=== PATIENT | male | born 1990 | race African-American/Black ===

== ENCOUNTER 2018-08-11 14:57 | Emergency (ER) | payer SELFPAY ==
[2018-08-11] MEDS ORDERED: NORMAL SALINE 1000 ML 1,000 ML IV ONE ×2 (15:21→16:33)
--- NOTE | 2018-08-11 15:21 | ER Document Report ---
ED General - General Mode of Arrival: Ambulatory Information source: Patient <JOSÉ MANUEL CATESCHARLEE - Last Filed: 08/11/18 15:44> <JEOVANY VELEZ - Last Filed: 08/11/18 20:45> - General Stated Complaint: POSSIBLE DEHYDRATION Time Seen by Provider: 08/11/18 15:09 Notes: Patient is a 28 year old male presenting to the emergency department complaining of possible dehydration. 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 Patient states that he has had decreased fluid and food intake today and has also had decreased urine output as well. Patient also complains of severe abdominal cramps and midsternal chest pain. Patient received 300 mg of LR via EMS. Patient states that he was diagnosed with PE approximately 3 months ago but has been noncompliant with his medication of Eliquis due to not being able to afford medication. Patient states that he is on 5 mg of Eliquis 2 times a day for the next 3 months. (LEATHA CATES) - Related Data Allergies/Adverse Reactions: No Known Allergies Allergy (Unverified 08/11/18 16:00) Past Medical History - General Information source: Patient - Social History Smoking Status: Current Every Day Smoker Cigarette use (# per day): Yes - 1/2 PPD Chew tobacco use (# tins/day): No Family History: Reviewed & Not Pertinent - Past Medical History Cardiac Medical History: Reports: Hx Pulmonary Embolism <LEATHA CATES - Last Filed: 08/11/18 15:44> Review of Systems - Review of Systems Constitutional: See HPI, Weakness EENT: No symptoms reported Cardiovascular: See HPI, Chest pain Respiratory: No symptoms reported Gastrointestinal: See HPI, Abdominal pain Genitourinary: No symptoms reported Male Genitourinary: No symptoms reported Musculoskeletal: No symptoms reported Skin: No symptoms reported Hematologic/Lymphatic: No symptoms reported Neurological/Psychological: No symptoms reported -: Yes All other systems reviewed and negative <LEATHA CATES - Last Filed: 08/11/18 15:44> Physical Exam - General General appearance: Appears well, Alert In distress: None - HEENT Head: Normocephalic, Atraumatic Eyes: Normal Conjunctiva: Normal Extraocular movements intact: Yes Pupils: PERRL Mucous membranes: Normal Neck: Normal - Respiratory Respiratory status: No respiratory distress Chest status: Nontender Breath sounds: Normal Chest palpation: Normal - Cardiovascular Rhythm: Regular Heart sounds: Normal auscultation Murmur: No Friction rub: No Gallop: None auscultated - Abdominal Inspection: Normal Distension: No distension Bowel sounds: Normal Tenderness: Nontender Organomegaly: No organomegaly - Back Back: Normal - Extremities General upper extremity: Normal ROM General lower extremity: Normal ROM - Neurological Neuro grossly intact: Yes Cognition: Normal Orientation: AAOx4 [place] Coma Scale Eye Opening: Spontaneous [place] Coma Scale Verbal: Oriented [place] Coma Scale Motor: Obeys Commands [place] Coma Scale Total: 15 Speech: Normal - Psychological Associated symptoms: Anxious - Skin Skin Temperature: Warm Skin Moisture: Dry Skin Color: Normal <LEATHA CATES - Last Filed: 08/11/18 15:44> - Vital signs Vitals: Temp Pulse Resp BP Pulse Ox 97.5 F 95 16 154/86 H 99 08/11/18 15:13 08/11/18 15:13 08/11/18 15:13 08/11/18 15:13 08/11/18 15:13 Course - Laboratory Result Diagrams: 08/11/18 15:35 08/11/18 15:35 <LEATHA CATES - Last Filed: 08/11/18 15:44> - Laboratory Result Diagrams: 08/11/18 15:35 08/11/18 15:35 - EKG Interpretation by Me EKG shows normal: Sinus rhythm, [place], Intervals. abnormal: QRS Complexes - ST elevation, probably early repolarization pattern, ST-T Waves - Inferior T wave inversion Rate: Normal - 80 Rhythm: NSR <JEOVANY VELEZ - Last Filed: 08/11/18 20:45> - Re-evaluation Re-evalutation: 08/11/18 19:42 At this time the patient feels much better. He has occasional nausea. He is sitting up smiling. 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 Patient is counseled on the need to continue to drink lots of water and other fluids today tonight and tomorrow. He will also be off work tomorrow to rest and avoid further muscle injury. (JEOVANY VELEZ) - Vital Signs Vital signs: Temp Pulse Resp BP Pulse Ox 98.6 F 95 18 138/62 H 100 08/11/18 20:00 08/11/18 15:13 08/11/18 20:00 08/11/18 20:00 08/11/18 20:00 - Laboratory Laboratory results interpreted by me: 08/11/18 08/11/18 08/11/18 15:35 15:35 16:50 WBC 12.8 H MCV 78 L Seg Neutrophils % 78.8 H Lymphocytes % 12.5 L Absolute Neutrophils 10.1 H Sodium 132.7 L Chloride 97 L Carbon Dioxide 20 L Glucose 114 H AST 87 H Creatine Kinase 4417 H Urine Protein 100 H Urine Ketones 80 H Discharge <LEATHA CATES - Last Filed: 08/11/18 15:44> <JEOVANY VELEZ - Last Filed: 08/11/18 20:45> - Discharge Clinical Impression: Dehydration Heat cramp Qualifiers: Encounter type: initial encounter Qualified Code(s): T67.2XXA - Heat cramp, initial encounter Rhabdomyolysis Qualifiers: Rhabdomyolysis type: non-traumatic Qualified Code(s): M62.82 - Rhabdomyolysis Condition: Stable Disposition: HOME, SELF-CARE Additional Instructions: Heat Exhaustion You have had an episode of heat exhaustion. The body overheats when sweating fails to keep the temperature down due to high humidity, exercise, or dehydration. Typical symptoms may include muscle cramps, dizziness, nausea, and even chilling. You should rest and drink plenty of fluids. Do not resume any activities until you feel fully back to normal. To prevent a recurrence, avoid working in the heat. Always drink plenty of fluids when the weather is hot, particularly if you will be exercising. Use extra caution when the humidity is high. If you feel symptoms of heat illness, douse yourself with cold water and rest in the shade. Call the doctor if you develop confusion, repeated vomiting, severe headache, severe muscle spasms, fever, chest pain or shortness of breath. You suffered significant breakdown of your muscles today due to the heat and dehydration. It is very important that you drink lots of fluids to include water and electrolyte solutions over the next few days. You will be off work tomorrow for complete rest and hydration. Take the nausea medicine you were given for this evening if needed. You may return to work on Saturday, but it is imperative that you drink lots of fluids before you start work and during the day while you are at work. You were given a prescription for the Eliquis you are supposed to be taking. It would be best if you find a way to get your prescription filled and take the medicine. You should also consider stopping smoking completely as this does increase the risk for forming new blood clots. You will need to see a primary care provider to renew the Eliquis prescription sometime in the next 2 weeks. RETURN TO THE EMERGENCY ROOM IF ANY NEW OR WORSENING SYMPTOMS. Prescriptions: Apixaban [Eliquis 5 mg Tablet] 5 mg PO BID #30 tablet Scribe Attestation: 08/11/18 15:50 I personally performed the services described in the documentation, reviewed and edited the documentation which was dictated to the scribe in my presence, and it accurately records my words and actions. (JEOVANY VELEZ)
[2018-08-11] MEDS ORDERED: ONDANSETRON HCL INJ/PF 4 MG/2 ML SDV IV ONE (15:42)
[2018-08-11 15:52] LABS: ABSOLUTE BASOPHILS # (AUTO) 0.1 10^3/uL (0.0-0.2); ABSOLUTE LYMPHOCYTES (AUTO) 1.6 10^3/uL (0.5-4.7); ABSOLUTE NEUT (AUTO) 10.1 10^3/uL (1.7-8.2); BASOPHILS % (AUTO) 0.8 % (0-2); EOSINOPHILS % (AUTO) 0.1 % (0-6); HEMATOCRIT 43.3 % (37.9-51.0); HEMOGLOBIN 15.2 g/dL (13.5-17.0); LYMPHOCYTES % (AUTO) 12.5 % (13-45); MEAN CORPUSCULAR HEMOGLOBIN 27.6 pg (27.0-33.4); MEAN CORPUSCULAR HGB CONC 35.1 g/dL (32.0-36.0); MEAN CORPUSCULAR VOLUME 78 fl (80-97); MONOCYTES % (AUTO) 7.8 % (3-13); PLATELET COUNT 175 10^3/uL (150-450); RED BLOOD COUNT 5.52 10^6/uL (4.35-5.55); RED CELL DISTRIBUTION WIDTH 13.4 % (11.5-14.0); SEGMENTED NEUTROPHILS % (AUTO) 78.8 % (42-78); TOTAL CELLS COUNTED % (AUTO) 100 %; WHITE BLOOD COUNT 12.8 10^3/uL (4.0-10.5)
[2018-08-11 16:19] LABS: ALANINE AMINOTRANSFERASE 55 U/L (21-72); ALBUMIN 4.6 g/dL (3.5-5.0); ALKALINE PHOSPHATASE 83 U/L (38-126); ANION GAP 16 (5-19); ASPARTATE AMINO TRANSFERASE 87 U/L (17-59); BILIRUBIN,DIRECT 0.3 mg/dL (0.0-0.4); BILIRUBIN,TOTAL 1.1 mg/dL (0.2-1.3); BLOOD UREA NITROGEN 16 mg/dL (7-20); CARBON DIOXIDE 20 mmol/L (22-30); CHLORIDE 97 mmol/L (98-107); GLUCOSE 114 mg/dL (75-110); POTASSIUM 4.3 mmol/L (3.6-5.0); SODIUM 132.7 mmol/L (137-145)
[2018-08-11 16:43] LABS: CREATINE KINASE 4417 U/L (55-170)
[2018-08-11] MEDS ORDERED: KETOROLAC TROMETHAMINE INJ/PF 30 MG/1 ML SDV IV ONE (16:45)
[2018-08-11] MEDS ORDERED: METOCLOPRAMIDE HCL INJ/PF 10 MG/2 ML SDV IV ONE (16:45)
[2018-08-11 16:49] LABS: CREATINE KINASE MB 4.24 ng/mL (<4.55); TROPONIN I < 0.012 ng/mL
[2018-08-11 16:58] LABS: LIPASE 54.5 U/L (23-300)
[2018-08-11 17:22] LABS: APPEARANCE,URINE CLEAR; BILIRUBIN,URINE NEGATIVE (NEGATIVE); COLOR,URINE YELLOW; GLUCOSE, URINE NEGATIVE (NEGATIVE); KETONES,URINE 80 mg/dL (NEGATIVE); LEUKOCYTE ESTERASE,URINE NEGATIVE (NEGATIVE); NITRITE,URINE NEGATIVE (NEGATIVE); PROTEIN,URINE 100 mg/dL (NEGATIVE); URINE SPECIFIC GRAVITY 1.025; UROBILINOGEN,URINE NEGATIVE mg/dL (<2.0)
[2018-08-11 17:37] LABS: URINE AMPHETAMINES SCREEN NEGATIVE; URINE BARBITURATES SCREEN NEGATIVE; URINE BENZODIAZEPINES SCREEN NEGATIVE; URINE COCAINE SCREEN NEGATIVE; URINE MARIJUANA (THC) SCREEN UNCONFIRMED POSITIVE; URINE METHADONE SCREEN NEGATIVE; URINE PHENCYCLIDINE SCREEN NEGATIVE
[2018-08-11] MEDS ORDERED: DEXTROSE 5%-LACTATED RINGERS 1,000 ML IV ONE (18:04)
[2018-08-11] MEDS ORDERED: ONDANSETRON ODT 4 MG TAB (6 TAB/ER DISP) PO PRN (19:46)
[2018-08-11 20:35] VITALS: BP 138/62
--- NOTE | 2018-08-12 13:02 | EKG REPORT ---
SEVERITY:- ABNORMAL ECG - SINUS RHYTHM ABNORMAL T, CONSIDER ISCHEMIA, INFERIOR LEADS ST ELEV, PROBABLE NORMAL EARLY REPOL PATTERN : Confirmed by: Adrian Ovalle MD 12-Aug-2018 13:02:22
== END 2018-08-11 20:34 | disposition home or self-care (01) ==
LOC: ER 14:57
DX: E86.0 Dehydration (principal); T67.2XXA Heat cramp, initial encounter; M62.82 Rhabdomyolysis; X58.XXXA Exposure to other specified factors, initial encounter; Y93.H3 Activity, building and construction; Y99.0 Civilian activity done for income or pay
CPT/HCPCS: 93005; 99284; 96361; 96374; 96375; 36415; 82553; 82550; 83690; 83735; 85025; 80053; 81001; 84484; 80307; 85379; 93010; J1885; J2765; J2405; J7030

== ENCOUNTER 2018-08-13 14:13 | Emergency (ER) | payer SELFPAY ==
[2018-08-13] MEDS ORDERED: ACETAMINOPHEN 325 MG TABLET PO ONE (14:52)
--- NOTE | 2018-08-13 14:53 | ER Document Report ---
ED Medical Screen (RME) - General Chief Complaint: Abdominal Pain Stated Complaint: ABDOMINAL PAIN Time Seen by Provider: 08/13/18 14:49 Notes: 28 years old male from [facility], presents today with abdominal pain chest pain. He was seen here a few days ago. Denies any fever chills but nausea has no vomiting. Denies any diarrhea or constipation. He seems to be in acute discomfort TRAVEL OUTSIDE OF THE [place] IN LAST 30 DAYS: No - Related Data Allergies/Adverse Reactions: No Known Allergies Allergy (Verified 08/13/18 14:14) Past Medical History - Past Medical History Cardiac Medical History: Reports: Hx Pulmonary Embolism Pulmonary Medical History: Reports: Hx Bronchitis Renal/ Medical History: Denies: Hx Peritoneal Dialysis Physical Exam - Vital signs Vitals: Temp Pulse Resp BP Pulse Ox 99.4 F 88 20 154/89 H 100 08/13/18 14:26 08/13/18 14:26 08/13/18 14:26 08/13/18 14:26 08/13/18 14:26 Course - Vital Signs Vital signs: Temp Pulse Resp BP Pulse Ox 99.4 F 88 20 154/89 H 100 08/13/18 14:26 08/13/18 14:26 08/13/18 14:26 08/13/18 14:26 08/13/18 14:26 - Laboratory Result Diagrams: 08/13/18 15:13 08/13/18 16:20 Laboratory results interpreted by me: 08/13/18 08/13/18 08/13/18 15:13 15:13 16:20 WBC 20.2 H RBC 5.76 H Seg Neuts % (Manual) 83 H Lymphocytes % (Manual) 7 L Abs Neuts (Manual) 16.8 H Abs Monocytes (Manual) 2.0 H Sodium 136.8 L AST 74 H Urine Ketones 20 H Urine Urobilinogen 2.0 H Procedures - Central Line Right Femoral Time completed: 19:10 Consent obtained: Yes Central line pre-insertion: Sterile PPE donned, Chloraprep applied Central line lumen type: Triple Anesthetic type: 1% Lidocaine mL's of anesthesia: 5 Ultrasound guided: No CM at insertion site: 18 Line secured with sutures: Yes Central line post-insertion: Blood return from lumens, Biopatch applied, Sutured , Sterile dressing applied Number of attempts: 1 Complications: No
[2018-08-13 15:46] LABS: HEMATOCRIT 46.2 % (37.9-51.0); HEMOGLOBIN 15.9 g/dL (13.5-17.0); MEAN CORPUSCULAR HEMOGLOBIN 27.6 pg (27.0-33.4); MEAN CORPUSCULAR HGB CONC 34.4 g/dL (32.0-36.0); MEAN CORPUSCULAR VOLUME 80 fl (80-97); PLATELET COUNT 205 10^3/uL (150-450); RED BLOOD COUNT 5.76 10^6/uL (4.35-5.55); RED CELL DISTRIBUTION WIDTH 13.7 % (11.5-14.0); WHITE BLOOD COUNT 20.2 10^3/uL (4.0-10.5)
[2018-08-13 15:48] LABS: APPEARANCE,URINE CLEAR; BILIRUBIN,URINE NEGATIVE (NEGATIVE); COLOR,URINE YELLOW; GLUCOSE, URINE NEGATIVE (NEGATIVE); KETONES,URINE 20 mg/dL (NEGATIVE); LEUKOCYTE ESTERASE,URINE NEGATIVE (NEGATIVE); NITRITE,URINE NEGATIVE (NEGATIVE); PROTEIN,URINE NEGATIVE (NEGATIVE); URINE SPECIFIC GRAVITY 1.017
--- NOTE | 2018-08-13 15:52 | RADIOLOGY REPORT (SQ) ---
EXAM DESCRIPTION: ACUTE ABDOMEN SERIES COMPLETED DATE/TIME: 08/13/2018 3:37 pm REASON FOR STUDY: Abdominal pain COMPARISON: None. NUMBER OF VIEWS: Three views. TECHNIQUE: Frontal chest, supine abdomen and upright/decubitus abdomen radiographic images acquired. LIMITATIONS: None. FINDINGS: CHEST: Lungs clear of infiltrates. FREE AIR: None. No abnormal gas collections. BOWEL GAS PATTERN: Nonobstructive pattern. No dilated loops or air fluid levels. CALCIFICATIONS: No suspicious calcifications. HARDWARE: None in the abdomen. SOFT TISSUES: No gross mass or suggestion of organomegaly. BONES: No acute fracture. No worrisome bone lesions. OTHER: No other significant finding. IMPRESSION: NO RADIOGRAPHIC EVIDENCE FOR ACUTE ABDOMINAL DISEASE. TECHNICAL DOCUMENTATION: JOB ID: [id number] [employer]- All Rights Reserved Reading location - IP/workstation name: [facility], [facility]-[id number]
[2018-08-13 16:06] LABS: ABSOLUTE LYMPHOCYTES# (MANUAL) 1.4 10^3/uL (0.5-4.7); ABSOLUTE NEUTROPHILS# (MANUAL) 16.8 10^3/uL (1.7-8.2); BASOPHILS % (MANUAL) 0 % (0-2); EOSINOPHILS % (MANUAL) 0 % (0-6); LYMPHOCYTES % (MANUAL) 7 % (13-45); MONOCYTES % (MANUAL) 10 % (3-13); PLATELET COMMENT ADEQUATE; SEGMENTED NEUTROPHILS % (MAN) 83 % (42-78); TOTAL CELLS COUNTED 100; TOXIC GRANULATION SLIGHT
[2018-08-13 16:47] LABS: URINE AMPHETAMINES SCREEN NEGATIVE; URINE BARBITURATES SCREEN NEGATIVE; URINE BENZODIAZEPINES SCREEN NEGATIVE; URINE COCAINE SCREEN NEGATIVE; URINE MARIJUANA (THC) SCREEN UNCONFIRMED POSITIVE; URINE METHADONE SCREEN NEGATIVE; URINE PHENCYCLIDINE SCREEN NEGATIVE
[2018-08-13] MEDS ORDERED: ONDANSETRON HCL INJ/PF 4 MG/2 ML SDV IV ONE (16:48)
[2018-08-13] MEDS ORDERED: RINGERS SOLUTION,LACTATED 1,000 ML IV ONE (16:48)
[2018-08-13 16:49] LABS: ALANINE AMINOTRANSFERASE 62 U/L (21-72); ALBUMIN 4.5 g/dL (3.5-5.0); ALKALINE PHOSPHATASE 83 U/L (38-126); ANION GAP 12 (5-19); ASPARTATE AMINO TRANSFERASE 74 U/L (17-59); BILIRUBIN,DIRECT 0.3 mg/dL (0.0-0.4); BILIRUBIN,TOTAL 1.3 mg/dL (0.2-1.3); BLOOD UREA NITROGEN 9 mg/dL (7-20); CALCIUM 10.2 mg/dL (8.4-10.2); CARBON DIOXIDE 22 mmol/L (22-30); CHLORIDE 103 mmol/L (98-107); GLUCOSE 108 mg/dL (75-110); POTASSIUM 4.2 mmol/L (3.6-5.0); SODIUM 136.8 mmol/L (137-145); TOTAL PROTEIN 8.2 g/dL (6.3-8.2)
--- NOTE | 2018-08-13 17:05 | ER Document Report ---
ED GI/ - General Chief Complaint: Abdominal Pain Stated Complaint: ABDOMINAL PAIN Time Seen by Provider: 08/13/18 14:49 Mode of Arrival: Ambulatory Information source: POA - Power of Stallion Manager Notes: 28-year-old male presents to ED for intractable nausea and vomiting abdominal cramping times 4 days. He was seen here 2 days ago for the same thing and is continued to vomit. His white count has gone from 12-20,000. He states he is used all the sofa and they gave him and it did no good. Patient is alert and oriented respirations regular and unlabored complaining that he needs something done for his abdominal pain nausea and vomiting. TRAVEL OUTSIDE OF THE [place] IN LAST 30 DAYS: No - HPI Patient complains to provider of: Abdominal pain, Vomiting Onset: Other - 4 days Timing/Duration: Persistent Quality of pain: Cramping Severity at maximum: Severe Severity in ED: Severe Pain Level: 5 Location: LUQ, LLQ, RUQ, RLQ, Left flank, Right flank Associated symptoms: Nausea, Vomiting Exacerbated by: Denies Relieved by: Denies Similar symptoms previously: Yes Recently seen / treated by doctor: Yes - Related Data Allergies/Adverse Reactions: No Known Allergies Allergy (Verified 08/13/18 14:14) Past Medical History - General Information source: Patient - Social History Smoking Status: Former Smoker Cigarette use (# per day): No Chew tobacco use (# tins/day): No Smoking Education Provided: No Frequency of alcohol use: States he quit Drug Abuse: Other - States he has not had a marijuana in 4 weeks but his marijuana is positive Family History: Reviewed & Not Pertinent Patient has suicidal ideation: No Patient has homicidal ideation: No - Past Medical History Cardiac Medical History: Reports: Hx Pulmonary Embolism Pulmonary Medical History: Reports: Hx Bronchitis EENT Medical History: Reports: None Neurological Medical History: Reports: None Endocrine Medical History: Reports: None Renal/ Medical History: Reports: None Malignancy Medical History: Reports None GI Medical History: Reports: None Musculoskeletal Medical History: Reports None Skin Medical History: Reports None Psychiatric Medical History: Reports: None Traumatic Medical History: Reports: None Infectious Medical History: Reports: None Surgical Hx: Negative Past Surgical History: Reports: None - Immunizations Immunizations up to date: Yes Hx Diphtheria, Pertussis, Tetanus Vaccination: Yes Review of Systems - Review of Systems Constitutional: Chills, Recent illness EENT: No symptoms reported Cardiovascular: No symptoms reported Respiratory: No symptoms reported Gastrointestinal: Abdominal pain, Nausea, Vomiting Genitourinary: No symptoms reported Male Genitourinary: No symptoms reported Musculoskeletal: No symptoms reported Skin: No symptoms reported Hematologic/Lymphatic: No symptoms reported Neurological/Psychological: No symptoms reported -: Yes All other systems reviewed and negative Physical Exam - Vital signs Vitals: Temp Pulse Resp BP Pulse Ox 99.4 F 88 20 154/89 H 100 08/13/18 14:26 08/13/18 14:26 08/13/18 14:26 08/13/18 14:26 08/13/18 14:26 Interpretation: Normal - General General appearance: Appears well, Alert - HEENT Head: Normocephalic, Atraumatic Eyes: Normal Pupils: PERRL - Respiratory Respiratory status: No respiratory distress Chest status: Nontender Breath sounds: Normal Chest palpation: Normal - Cardiovascular Rhythm: Regular Heart sounds: Normal auscultation Murmur: No - Abdominal Inspection: Normal Distension: No distension. No: Distended Bowel sounds: Hyperactive Tenderness: Tender Organomegaly: No organomegaly - Back Back: Normal, Nontender - Extremities General upper extremity: Normal inspection, Nontender, Normal color, Normal ROM , Normal temperature General lower extremity: Normal inspection, Nontender, Normal color, Normal ROM , Normal temperature, Normal weight bearing. No: Zahra's sign - Neurological Neuro grossly intact: Yes Cognition: Normal Orientation: AAOx4 Jennifer Coma Scale Eye Opening: Spontaneous Jennifer Coma Scale Verbal: Oriented [place] Coma Scale Motor: Obeys Commands [place] Coma Scale Total: 15 Speech: Normal Motor strength normal: LUE, RUE, LLE, RLE Sensory: Normal - Psychological Associated symptoms: Normal affect, Normal mood - Skin Skin Temperature: Warm Skin Moisture: Dry Skin Color: Normal Course - Re-evaluation Re-evalutation: 08/14/18 03:07 CT abdomen pelvis and chest was completed due to his abdominal pain nausea and vomiting and history of pulmonary edema. Patient was treated with IV fluids and Zofran IV as well as morphine for his abdominal pain nausea and vomiting. After numerous sticks patient was treated with a femoral central line by Dr. rsohan Olvera as we were unable to get lab samples or IV fluids started. After the femoral central line was started patient tolerated IV fluids and medications well and had relief from his symptoms. CT of chest showed that he had bilateral lower lobe infiltrates abdomen and pelvis was negative. Patient had no further nausea or vomiting while in the emergency room. Patient was treated with Rocephin in the emergency room and discharged home with Keflex. Patient was up ambulating tolerating fluids by discharge. Patient was instructed to return to the ED for any increase nausea or vomiting or other symptoms. Patient verbalized understanding and agreement with treatment plan. Patient was discharged home. X-ray showed that there was no pulmonary emboli at this time. - Vital Signs Vital signs: Temp Pulse Resp BP Pulse Ox 99.2 F 78 18 117/67 96 08/13/18 23:34 08/13/18 23:34 08/13/18 23:34 08/13/18 23:34 08/13/18 23:34 - Laboratory Result Diagrams: 08/13/18 15:13 08/13/18 16:20 Laboratory results interpreted by me: 08/13/18 08/13/18 08/13/18 15:13 15:13 16:20 WBC 20.2 H RBC 5.76 H Seg Neuts % (Manual) 83 H Lymphocytes % (Manual) 7 L Abs Neuts (Manual) 16.8 H Abs Monocytes (Manual) 2.0 H Sodium 136.8 L AST 74 H Urine Ketones 20 H Urine Urobilinogen 2.0 H - Diagnostic Test Radiology reviewed: Image reviewed, Reports reviewed Discharge - Discharge Clinical Impression: Pneumonia Qualifiers: Pneumonia type: due to unspecified organism Laterality: bilateral Lung location : lower lobe of lung Qualified Code(s): J18.1 - Lobar pneumonia, unspecified organism Nausea & vomiting Qualifiers: Vomiting type: unspecified Vomiting Intractability: non-intractable Qualified Code(s): R11.2 - Nausea with vomiting, unspecified Condition: Stable Disposition: HOME, SELF-CARE Instructions: Family Physicians / Practices Additional Instructions: PNEUMONIA: Your examination indicates that you have pneumonia. This is an infection of the lung tissue, usually caused by bacteria or a virus. Symptoms include cough, fever, shaking chills, chest pain, shortness of breath, and coughing up bloody sputum. Treatment for bacterial pneumonia includes rest, antibiotics for 10 to 14 days, increasing your clear liquid intake, a cool mist humidifier at your bedside, and fever medication. Often, a repeat chest X-ray is performed in a few weeks--even if you feel better--to ascertain whether the infection has completely resolved and no underlying lung problem is present. You should call the physician if you develop persistent vomiting, high fever that does not respond to fever medication, increasing shortness of breath , confusion, or lethargy. Also, failure to improve within two to three days is an indication for re-examination. ROCEPHIN: You have been given an injection of an antibiotic called Rocephin ( ceftriaxone). Sometimes the injection must be combined with antibiotic pills. For some infections, such as an uncomplicated ear infection, Rocephin provides all the antibiotic that's needed. The antibiotic will be in your body for about two days. For serious infections, we usually repeat doses of Rocephin daily. Side effects are very unusual following a shot. Women may develop vaginal yeast infections, and babies can get yeast (thrush) in the mouth following the use of antibiotics. Contact your physician if you have symptoms with this medication. Allergy to this antibiotic can result in hives, wheezing, faintness, or itching. If symptoms of allergy occur, call the doctor at once. ANTIBIOTIC THERAPY: You have been given an antibiotic prescription. It's important that you take all the medication, unless instructed otherwise by your physician. Failure to complete the entire course can result in relapse of your condition. Common side effects of antibiotics include nausea, intestinal cramping, or diarrhea. Women may develop vaginal yeast infections, and babies can get yeast (thrush) in the mouth following the use of antibiotics. Contact your physician if you develop significant side effects from this medication. Allergy to this antibiotic can result in hives, wheezing, faintness, or itching. If symptoms of allergy occur, stop the medication and call the doctor. LEVOFLOXACIN: You have been given an antibacterial agent, levofloxacin (Levaquin). This medicine is not related to the penicillins, sulfas, cephalosporins, or tetracyclines. It is often given to patients who are allergic to these drugs. It has been chosen for you either because other drugs are not appropriate, or because of the nature of your problem. Levaquin should not be taken with antacids, as these can decrease its effectiveness. It can be taken without regard to meals. LEVAQUIN SHOULD NOT BE TAKEN BY CHILDREN, NURSING WOMEN, OR WOMEN. Although Levaquin is usually well-tolerated, common side effects can include nausea and diarrhea. Contact your doctor if you experience any unusual symptoms while on this medication, such as joint pain or swelling, shortness of breath, wheezing, faintness, or hives. AZITHROMYCIN: Azithromycin (Zithromax) is a broad spectrum antibiotic in the same class as erythromycin. It can treat a variety of bacterial infections, but is most frequently used for respiratory infections. Azithromycin is extremely long-lasting. It accumulates in body tissues and continues to kill bacteria for many days. In order to improve absorption, Azithromycin should be taken at least one hour before or two hours after a meal. It does not have the same strong tendency to upset the stomach as erythromycin and is usually very well tolerated. Patients who have had a rash or other true allergic reactions to erythromycin should not take this medication. Call if you develop gastrointestinal distress, severe diarrhea, rash, hives, itching, or shortness of breath. DOXYCYCLINE: Doxycycline (Vibramycin, Doryx) is an antibiotic of the tetracycline family. This type of drug is useful for infections of the respiratory tract and genital tract, and is sometimes used for intestinal infections. Unlike most tetracyclines, doxycycline can be taken with food. It is longer acting, and (usually) less prone to side effects than regular tetracycline. Tetracycline antibiotics can stain immature teeth and SHOULD NOT BE TAKEN BY CHILDREN, NURSING MOTHERS, OR WOMEN. Tetracyclines can make you more prone to sunburn. Abdominal cramping, nausea, and diarrhea are occasional side effects. Women may experience vaginal yeast infections. Call the doctor at once if you develop hives, itching, shortness of breath , or lightheadedness. AMOXICILLIN: Amoxicillin is a member of the penicillin family. It covers the germs likely to cause ear, bronchial, and urinary infections better than plain penicillin. Amoxicillin can be taken without regard to meals. Nausea after taking the medication is rare, but can occur. Diarrhea can occur, particularly in small children. Vaginal yeast infections and oral thrush in infants are also common. Contact your physician if these problems occur. Allergy to penicillins is common. If you have had an allergic reaction to any drug of the penicillin family, you should never take any other penicillin. Notify your doctor at once if you develop hives, itching, swelling, faintness, or shortness of breath. Less serious side effects can include nausea or diarrhea. USE OF ACETAMINOPHEN (Tylenol): Acetaminophen may be taken for pain relief or fever control. It's much safer than aspirin, offering a wider range of "safe" dosages. It is safe during . Some brand names are Tylenol, Panadol, Datril, Anacin 3, Tempra, and Liquiprin. Acetaminophen can be repeated every four hours. The following are maximum recommended dosages: WEIGHT Dose Drops Elixir Chewable( 80mg) (LBS.) drprs=droppers tsp=teaspoon 6 40 mg 0.4 ml (1/2) 6-11 80 mg 0.8 ml (full) tsp 1 tab 12-16 120 mg 1 1/2 drprs 3/4 tsp 1 1/2 tabs 17-23 160 mg 2 drprs 1 tsp 2 tabs 24-30 240 mg 3 drprs 1 1/2 tsp 3 tabs 30-35 320 mg 2 tsp 4 tabs 36-41 360 mg 2 1/4 tsp 4 1/2 tabs 42-47 400 mg 2 1/2 tsp 5 tabs 48-53 480 mg 3 tsp 6 tabs 54-59 520 mg 3 1/4 tsp 6 1/2 tabs 60-64 560 mg 3 1/2 tsp 7 tabs 65-70 600 mg 3 3/4 tsp 7 1/2 tabs 71-76 640 mg 4 tsp 8 tabs 77-82 720 mg 4 1/2 tsp 9 tabs 83-88 800 mg 5 tsp 10 tabs >89 pounds or adults 650 mg to 900 mg Acetaminophen can be repeated every four hours. Maximum dose not to exceed 4000 mg a day. These maximum recommended dosages are slightly higher than the dosages written on the product container, but these dosages are very safe and below the toxic dosage for acetaminophen. FOLLOW-UP CARE: If you have been referred to a physician for follow-up care, call the physician s office for an appointment as you were instructed or within the next two days. If you experience worsening or a significant change in your symptoms, notify the physician immediately or return to the Emergency Department at any time for re-evaluation. Prescriptions: Ondansetron HCl [Zofran 8 mg Tablet] 8 mg PO Q8HP PRN #14 tablet PRN Reason: Cephalexin Monohydrate [Keflex 500 mg Capsule] 500 mg PO Q6H 10 Days capsule Forms: Elevated Blood Pressure, Return to Work
[2018-08-13] MEDS ORDERED: MORPHINE SULFATE 10 MG/ML INJ IM ONE (18:39)
--- NOTE | 2018-08-13 19:56 | RADIOLOGY REPORT (SQ) ---
EXAM DESCRIPTION: KUB/ABDOMEN (SINGLE VIEW) COMPLETED DATE/TIME: 08/13/2018 7:42 pm REASON FOR STUDY: check placement of line COMPARISON: None. NUMBER OF VIEWS: One view. TECHNIQUE: Supine radiographic image of the abdomen acquired. LIMITATIONS: None. FINDINGS: BOWEL GAS PATTERN: Normal bowel gas pattern. No dilated loops. CALCIFICATIONS: No suspicious calcifications. SOFT TISSUES: No gross mass or suggestion of organomegaly. HARDWARE: A catheter overlies the right femoral/iliac artery. BONES: No acute fracture. No worrisome bone lesions. OTHER: No other significant finding. IMPRESSION: Catheter as described. TECHNICAL DOCUMENTATION: JOB ID: [id number]- All Rights Reserved Reading location - IP/workstation name: [email or web address]
--- NOTE | 2018-08-13 21:32 | RADIOLOGY REPORT (SQ) ---
PROCEDURE: CT ABDOMEN PELVIS WITH IV CONTRAST, CT CHEST ANGIOGRAPHY WITHOUT THEN WITH IV CONTRAST COMPLETED DATE/TME: 08/13/2018 17:14 (accession [id number]), 08/13/2018 19:09 (accession [id number]) CLINICAL HISTORY: 28 years Male abdominal pain nv COMPARISON: None. TECHNIQUE: Contiguous axial images were obtained through the chest during the infusion of IV contrast. Reformatted images obtained. MIP reformatted images obtained. Additional postcontrast imaging was acquired through the abdomen and pelvis. Reformatted imaging obtained. This exam was performed according to our department optimization program which includes automated exposure control, adjustment of the mA and/or kv according to patient size and/or use of iterative reconstruction technique. FINDINGS: CHEST: There is no evidence of pulmonary embolus. There are patchy areas of alveolar infiltrate in the lower lobes bilaterally right greater than left. Findings may reflect infectious or inflammatory process. Occasional areas of peripheral density in the right upper lobe. Tiny noncalcified pulmonary nodules in the right upper and middle lobe measuring 3 mm. These can be followed in 12 months if there is concern for malignancy. No significant thoracic adenopathy. Abdomen pelvis: Liver spleen and pancreas are unremarkable. No acute abnormality in the kidneys. No adrenal masses. Gallbladder appears unremarkable. Unremarkable appendix. No bowel obstruction or free fluid. No significant adenopathy. No bowel obstruction. IMPRESSION: No evidence of acute process in the abdomen No evidence of pulmonary embolus Patchy areas of alveolar infiltrate in the chest predominantly in the lung bases right greater than left. Findings may reflect infectious or inflammatory process
--- NOTE | 2018-08-13 21:32 | RADIOLOGY REPORT (SQ) ---
PROCEDURE: CT ABDOMEN PELVIS WITH IV CONTRAST, CT CHEST ANGIOGRAPHY WITHOUT THEN WITH IV CONTRAST COMPLETED DATE/TME: 08/13/2018 17:14 (accession [id number]), 08/13/2018 19:09 (accession [id number]) CLINICAL HISTORY: 28 years Male abdominal pain nv COMPARISON: None. TECHNIQUE: Contiguous axial images were obtained through the chest during the infusion of IV contrast. Reformatted images obtained. MIP reformatted images obtained. Additional postcontrast imaging was acquired through the abdomen and pelvis. Reformatted imaging obtained. This exam was performed according to our department optimization program which includes automated exposure control, adjustment of the mA and/or kv according to patient size and/or use of iterative reconstruction technique. FINDINGS: CHEST: There is no evidence of pulmonary embolus. There are patchy areas of alveolar infiltrate in the lower lobes bilaterally right greater than left. Findings may reflect infectious or inflammatory process. Occasional areas of peripheral density in the right upper lobe. Tiny noncalcified pulmonary nodules in the right upper and middle lobe measuring 3 mm. These can be followed in 12 months if there is concern for malignancy. No significant thoracic adenopathy. Abdomen pelvis: Liver spleen and pancreas are unremarkable. No acute abnormality in the kidneys. No adrenal masses. Gallbladder appears unremarkable. Unremarkable appendix. No bowel obstruction or free fluid. No significant adenopathy. No bowel obstruction. IMPRESSION: No evidence of acute process in the abdomen No evidence of pulmonary embolus Patchy areas of alveolar infiltrate in the chest predominantly in the lung bases right greater than left. Findings may reflect infectious or inflammatory process
[2018-08-13] MEDS ORDERED: CEPHALEXIN 500 MG CAPSULE PO ONE (22:13)
[2018-08-13] MEDS ORDERED: LIDOCAINE 1% INJ-PF (10 MG/ML) 30 ML SDV INJ ONE (22:15)
[2018-08-13] MEDS ORDERED: CEFTRIAXONE INJ 1000 MG VIAL IM ONE (22:15)
[2018-08-13 23:35] VITALS: BP 117/67
== END 2018-08-14 | disposition home or self-care (01) ==
LOC: ER 14:13
DX: J18.1 Lobar pneumonia, unspecified organism (principal); R11.2 Nausea with vomiting, unspecified; R10.9 Unspecified abdominal pain; Z87.891 Personal history of nicotine dependence
CPT/HCPCS: 99284; 96372; 96361; 96374; 36415; 85025; 80053; 81001; 80307; 74022; 74018; 71275; 74177; C1751; J3490; J2270; J0696; J2405; J7120